=== PATIENT | female | born 1955 | race Caucasian/White ===

== ENCOUNTER 2023-09-08 11:37 | Emergency (ER) | payer OTHER ==
--- OUTSIDE RECORDS SUMMARY | 2023-09-08 11:41 | XMS REPORT | Continuity of Care Document ---
:1955 Author Organization [facility] t Address [address] [place] [address] [place] [id number] Care Team Providers Name Role Phone MIKA ARELLANO Primary Care Physician Unavailable SOFIA KHAN Attending Clinician Unavailable Lidya Hatfield Attending Clinician Unavailable Toyin Sellers Attending Clinician Sofia Khan MD Attending Clinician TOYIN JENKINS Attending Clinician Unavailable Doctor Unassigned, [place] Attending Clinician Unavailable SOFIA KHAN Admitting Clinician Unavailable ALMA ARELLANO Admitting Clinician Unavailable Payers Payer Name Policy Type Policy Number Effective Date Expiration Date S ource Problems Condition Condition Condition Status Onset Resolution Last Treating Co mments Source Name Details Category Date Date Treatment Clinician Date Primary Primary Disease Active Overview: Univ ers osteoarthr osteoarthr 3-10 Added it y of itis of itis of 00:00: automatic [place] left knee left knee 00 ally from [facility] Branch for surgery [id number] Primary Primary Diagnosis Active Commo n osteoarthr osteoarthr Sp mariangel itis of itis of - [facility] right knee right knee [facility] Pain, Pain, Diagnosis Active Common joint, joint, Spirit knee, knee, - [facility] right right [facility] Allergies, Adverse Reactions, Alerts Allergy Allergy Status Severity Reaction(s) Onset Inactive Treating Comm ents Source Name Type Date Date Clinician lidocain DA Active SV [facility] 01-29 Clear 00:00: [place] 00 [facility] lidocain DA Active [facility] 01-29 Clear 00:00: [place] 00 [facility] LIDOCAIN DRUG Active N/V 2017-11 Univers E INGREDI 2- ity of 00:00: [place] 00 [facility] Lidocain Propensi Active Nausea 2017-11 Univer s e ty to and/or 12-12 ity of adverse Vomiting 00:00: [place] reaction [facility] lidocain DA Active [facility] 11-21 [place] 00:00[facility] lid[facility] DA Active [facility] 11-21 [place] 00:00: [facility]ope 00 [facility] Lidocain Adverse Active Info Not Commo n e Reaction Available Spiri t - [facility] Social History Social Habit Start Date Stop Date Quantity Comments Source Sex Assigned At [facility] [place] [facility] Tobacco use and 2020-01-08 2020-01-08 Never used Universit y of exposure 00:00:00 00:00:00 [facility] [place] [facility] Alcohol intake 2020-01-08 2020-01-08 Current drinker Unive rsity of 00:00:00 00:00:00 of alcohol [facility] [place] Alcohol Comment 2019-03-31 2019-03-31 daily Universit y of 00:00:00 00:00:00 [facility] [place] [facility] Smoking Status Start Date Stop Date Source Unknown if ever smoked [facility] [place] [facility] [place] Never smoker [facility] Medications Ordered Filled Start Stop Current Ordering Indication Dosage Frequency Signature Comments Components Source Medication Medication Date Date Medication? Clinician (SIG) Name Name DICLOFENAC 2020-0 Yes [id number] TAKE 1 Univers 75 mg EC 9-03 9109 TABLET BY ity of tablet 00:00: MOUTH 00 TWICE Medical DAILY WITH Branch MEALS DICLOFENAC 2020-0 Yes [id number] TAKE 1 Univers 75 mg EC 7-28 9109 TABLET BY ity of tablet 00:00: MOUTH 00 TWICE Medical DAILY WITH Branch MEALS DICLOFENAC 2020-0 2020- No [id number] TAKE 1 Univers 75 mg EC 7-28 - 9109 TABLET BY ity o f tablet 00:00: 00:00 MOUTH [place] 00 :00 TWICE Medical DAILY WITH Branch MEALS DICLOFENAC 2020-0 Yes [id number] TAKE 1 Univers 75 mg EC 6-22 9109 TABLET BY ity of tablet 00:00: MOUTH [place] 00 TWICE Medical DAILY WITH Branch MEALS DICLOFENAC 2019-0 2020- No [id number] TAKE 1 Univers 75 mg EC 6-22 - 9109 TABLET BY ity o f tablet 00:00: 00:00 MOUTH [place] 00 :00 TWICE Medical DAILY WITH Branch MEALS diclofenac 2020-0 Yes 75mg Take 1 Unive rs 75 mg EC 3-25 tablet by ity of tablet 00:00: mouth 2 [place] 00 (two) Medical times Branch daily with meals. diclofenac 2019-0 2020- No 75mg Take 1 Univ ers 75 mg EC 3-25 - tablet by ity o f tablet 00:00: 00:00 mouth 2 [place] 00 :00 (two) Medical times Branch daily with meals. celecoxib 2020- No 400mg Univer s (CELEBREX) 01-21 ity of capsule 400 05:00: 16:59 [place] mg 00 :00 Medical Branch oxyCODONE-a 2019- No 2{tbl} Uni vers cetaminophe 01-21 ity of n 05:00: 16:59 [place] (PERCOCET) 00 :00 Medical 5-325 mg Branch per tablet 2 tablet tranexamic 2019- No 1000mg Univ ers acid 01-21 ity of (CYKLOKAPRO 05:00: 16:59 [place] N) 1,000 mg 00 :00 Medical in NaCl Branch 0.9% (NS) 250 mL piggyback gabapentin 2019-2019- No 300mg Unive rs (NEURONTIN) 01-21 ity of capsule 300 05:00: 16:59 [place] mg 00 :00 Medical Branch celecoxib 2019-0 2020- No 400mg Univer s (CELEBREX) 01-21 ity of capsule 400 05:00: 16:59 [place] mg 00 :00 Medical Branch oxyCODONE-a 2020- No 2{tbl} Uni vers cetaminophe 01-21 ity of n 05:00: 16:59 [place] (PERCOCET) 00 :00 Medical 5-325 mg Branch per tablet 2 tablet tranexamic 2019- No 1000mg Univ ers acid 01-21 ity of (CYKLOKAPRO 05:00: 16:59 [place] N) 1,000 mg 00 :00 Medical in NaCl Branch 0.9% (NS) 250 mL piggyback gabapentin 2019- No 300mg Unive rs (NEURONTIN) 01-21 ity of capsule 300 05:00: 16:59 [place] mg 00 :00 Medical Branch LISINOPRIL 0 2019- No 20mg Take 20 mg Univers ORAL 01-0709 by mouth. ity of 17:52: 00:00 [place] 48 :00 Medical Branch LISINOPRIL 2019-0 2019- No 20mg Take 20 mg Univers ORAL 01-0709 by mouth. ity of 17:52: 00:00 [place] 48 :00 Medical Branch lisinopril 2019-0 Yes TAKE 1 Unive rs 20 mg 3-02 TABLET BY ity of tablet 00:00: MOUTH [place] 00 TWICE Medical DAILY FOR Branch 90 DAYS atorvastati 2019-0 Yes TAKE 1 Univ ers n 20 mg 3-02 TABLET BY ity of tablet 00:00: MOUTH ONCE [place] 00 DAILY FOR Medical 90 DAYS Branch lisinopril 2019-0 Yes TAKE 1 Unive rs 20 mg 3-02 TABLET BY ity of tablet 00:00: MOUTH [place] 00 TWICE Medical DAILY FOR Branch 90 DAYS atorvastati 2019-0 Yes TAKE 1 Univ ers n 20 mg 3-02 TABLET BY ity of tablet 00:00: MOUTH ONCE [place] 00 DAILY FOR Medical 90 DAYS Branch lisinopril 2019-0 Yes TAKE 1 Unive rs 20 mg 3-02 TABLET BY ity of tablet 00:00: MOUTH [place] 00 TWICE Medical DAILY FOR Branch 90 DAYS atorvastati 2020-0 Yes TAKE 1 Univ ers n 20 mg 3-02 TABLET BY ity of tablet 00:00: MOUTH ONCE [place] 00 DAILY FOR Medical 90 DAYS Branch lisinopril 2020-0 Yes TAKE 1 Unive rs 20 mg 3-02 TABLET BY ity of tablet 00:00: MOUTH [place] 00 TWICE Medical DAILY FOR Branch 90 DAYS atorvastati 2019-0 Yes TAKE 1 Univ ers n 20 mg 3-02 TABLET BY ity of tablet 00:00: MOUTH ONCE [place] 00 DAILY FOR Medical 90 DAYS Branch lisinopril 2020-0 Yes TAKE 1 Unive rs 20 mg 3-02 TABLET BY ity of tablet 00:00: MOUTH [place] 00 TWICE Medical DAILY FOR Branch 90 DAYS atorvastati 2020-0 Yes TAKE 1 Univ ers n 20 mg 3-02 TABLET BY ity of tablet 00:00: MOUTH ONCE 00 DAILY FOR Medical 90 DAYS Branch lisinopril 2020-0 Yes TAKE 1 Unive rs 20 mg 3-02 TABLET BY ity of tablet 00:00: MOUTH [place] 00 TWICE Medical DAILY FOR Branch 90 DAYS atorvastati 2020-0 Yes TAKE 1 Univ ers n 20 mg 3-02 TABLET BY ity of tablet 00:00: MOUTH ONCE 00 DAILY FOR Medical 90 DAYS Branch lisinopril 2020-0 Yes TAKE 1 Unive rs 20 mg 3-02 TABLET BY ity of tablet 00:00: MOUTH 00 TWICE Medical DAILY FOR Branch 90 DAYS atorvastati 2020-0 Yes TAKE 1 Univ ers n 20 mg 3-02 TABLET BY ity of tablet 00:00: MOUTH ONCE 00 DAILY FOR Medical 90 DAYS Branch lisinopril 2020-0 Yes TAKE 1 Unive rs 20 mg 3-02 TABLET BY ity of tablet 00:00: MOUTH [place] 00 TWICE Medical DAILY FOR Branch 90 DAYS atorvastati 2020-0 Yes TAKE 1 Univ ers n 20 mg 3-02 TABLET BY ity of tablet 00:00: MOUTH ONCE 00 DAILY FOR Medical 90 DAYS Branch diclofenac 2019-0 Yes [id number] 75mg Take 1 U nivers 75 mg EC 8-08 tablet by ity of tablet 00:00: mouth (two) Medical times Branch daily with meals. diclofenac 2019-0 Yes [id number] 75mg Take 1 U nivers 75 mg EC 8-08 tablet by ity of tablet 00:00: mouth (two) Medical times Branch daily with meals. diclofenac 2019-0 Yes [id number] 75mg Take 1 U nivers 75 mg EC 8-08 tablet by ity of tablet 00:00: mouth 2 (two) Medical times Branch daily with meals. diclofenac 2019-0 Yes [id number] 75mg Take 1 U nivers 75 mg EC 8-08 tablet by ity of tablet 00:00: mouth 2 (two) Medical times Branch daily with meals. diclofenac 2019-0 Yes [id number] 75mg Take 1 U nivers 75 mg EC 8-08 tablet by ity of tablet 00:00: mouth 2 [place] (two) Medical times Branch daily with meals. diclofenac 2019-0 Yes [id number] 75mg Take 1 U nivers 75 mg EC 8-08 tablet by ity of tablet 00:00: mouth [place] (two) Medical times Branch daily with meals. diclofenac 2019-0 Yes [id number] 75mg Take 1 U nivers 75 mg EC 8-08 tablet by ity of tablet 00:00: mouth [place] (two) Medical times Branch daily with meals. diclofenac 2019-0 Yes [id number] 75mg Take 1 U nivers 75 mg EC 8-08 tablet by ity of tablet 00:00: mouth [place] (two) Medical times Branch daily with meals. diclofenac 2019-0 Yes [id number] 75mg Take 1 U nivers 75 mg EC 8-08 tablet by ity of tablet 00:00: mouth [place] (two) Medical times Branch daily with meals. diclofenac 2018-0 Yes [id number] 75mg Take 1 U nivers 75 mg EC 8-08 tablet by ity of tablet 00:00: mouth [place] (two) Medical times Branch daily with meals. diclofenac 2019-0 Yes [id number] 75mg Take 1 U nivers 75 mg EC 8-08 tablet by ity of tablet 00:00: mouth [place] (two) Medical times Branch daily with meals. diclofenac 2019-0 Yes [id number] 75mg Take 1 U nivers 75 mg EC 8-08 tablet by ity of tablet 00:00: mouth [place] (two) Medical times Branch daily with meals. diclofenac 2019- 2019- No [id number] 75mg Take 1 Univers 75 mg EC 5-31 08-08 tablet by ity o f tablet 00:00: 00:[address] [place] [address] 00 :00 (two) Medical times Branch daily with meals. Diclofenac 2019-0 Yes Univers Sodium 1 % 5-03 ity of gel 00:00: [place] 00 Medical Branch Diclofenac 2019-0 Yes Univers Sodium 1 % 5-03 ity of gel 00:00: [place] 00 Medical Branch Diclofenac 2019-0 Yes Univers Sodium 1 % 5-03 ity of gel 00:00: [place] 00 Medical Branch Diclofenac 2019-0 Yes Univers Sodium 1 % 5-03 ity of gel 00:00: [place] Medical [facility] Diclofenac 2019-0 Yes Univers Sodium 1 % 5-03 ity of gel 00:00: [place] [facility] Diclofenac 2019-0 Yes Univers Sodium 1 % 5-03 ity of gel 00:00: [place] [address] Medical Branch Diclofenac 2019-0 Yes Univers Sodium 1 % 5-03 ity of gel 00:00: [place] [address] Medical Branch Diclofenac 2019-0 Yes Univers Sodium 1 % 5-03 ity of gel 00:00: [place] [address] Medical Branch Diclofenac 2019-0 Yes Univers Sodium 1 % 5-03 ity of gel 00:00: [place] [address] Medical Branch Diclofenac 2019-0 Yes Univers Sodium 1 % 5-03 ity of gel 00:00: [place] [address] Medical Branch Diclofenac 2019-0 Yes Univers Sodium 1 % 5-03 ity of gel 00:00: [place] [address] Medical Branch Diclofenac 2018-0 Yes Univers Sodium 1 % 5-03 ity of gel 00:00: [address] Tramadol Tramadol 0 Yes Onesimo Anderson mon HCl HCl 4- Lara directed Spirit 00:00: - [facility] 00 [facility] estradiol 2 2017-11 Yes 2mg Take 2 mg U nivers mg tablet 2-11 by mouth ity of 19:56: daily. [address] estradiol 2 2017-11 Yes 2mg Take 2 mg U nivers mg tablet 2-11 by mouth ity of 19:56: daily. [address] estradiol 2 2017-11 Yes 2mg Take 2 mg U nivers mg tablet 2-11 by mouth ity of 19:56: daily. [address] estradiol 2 2017-11 Yes 2mg Take 2 mg U nivers mg tablet 2-11 by mouth ity of 19:56: daily. [address] estradiol 2 2017-11 Yes 2mg Take 2 mg U nivers mg tablet 2-11 by mouth ity of 19:56: daily. [address] estradiol 2 2017-11 Yes 2mg Take 2 mg U nivers mg tablet 2-11 by mouth ity of 19:56: daily. [address] estradiol 2 2017-11 Yes 2mg Take 2 mg U nivers mg tablet 2-11 by mouth ity of 19:56: daily. [address] estradiol 2 2017-11 Yes 2mg Take 2 mg U nivers mg tablet 2-11 by mouth ity of 19:56: daily. [address] estradiol 2 2017-11 Yes 2mg Take 2 mg U nivers mg tablet 2-11 by mouth ity of 19:56: daily. [address] estradiol 2 2017-11 Yes 2mg Take 2 mg U nivers mg tablet 2-11 by mouth ity of 19:56: daily. [address] estradiol 2 2017-11 Yes 2mg Take 2 mg U nivers mg tablet 2-11 by mouth ity of 19:56: daily. [address] estradiol 2 2017-11 Yes 2mg Take 2 mg U nivers mg tablet 2-11 by mouth ity of 19:56: daily. [address] estradiol 2 2017-11 Yes 2mg Take 2 mg U nivers mg tablet 2-11 by mouth ity of 19:56: daily. [address] metoprolol 2017-11 Yes 25mg Take 25 mg U nivers succinate 2-11 by mouth ity of XL 25 mg 24 19:56: [place]. [place] tablet [address] [place] [address] metoprolol 2017-11 Yes 25mg Take 25 mg U nivers succinate 2-11 by mouth ity of XL 25 mg 24 19:56: [place]. [place] tablet 20 [facility] metoprolol 2017-11 Yes 25mg Take 25 mg U nivers succinate 2-11 by mouth ity of XL 25 mg 24 19:56: [place]. [place] tablet [address] [place] [address] metoprolol 2017-11 Yes 25mg Take 25 mg U nivers succinate 2-11 by mouth ity of XL 25 mg 24 19:56: [place]. [place] tablet [address] [place] [address] LISINOPRIL 2017-11 Yes 20mg Take 20 mg U nivers ORAL 2-11 by mouth. ity of 19:56: [address] metoprolol 2017-11 Yes 25mg Take 25 mg U nivers succinate 2-11 by mouth ity of XL 25 mg 24 19:56: [place]. [place] tablet [address] [place] [address] LISINOPRIL 2017-11 Yes 20mg Take 20 mg U nivers ORAL 2-11 by mouth. ity of 19:56: [address] metoprolol 2017-11 Yes 25mg Take 25 mg U nivers succinate 2-11 by mouth ity of XL 25 mg 24 19:56: [place]. [place] tablet 20 [facility] LISINOPRIL 2017-11 Yes 20mg Take 20 mg U nivers ORAL 2-11 by mouth. ity of 19:56: [address] metoprolol 2017-11 Yes 25mg Take 25 mg U nivers succinate 2-11 by mouth ity of XL 25 mg 24 19:56: [place]. [place] tablet 20 [facility] LISINOPRIL 2017-11 Yes 20mg Take 20 mg U nivers ORAL 2-11 by mouth. ity of 19:56: [address] metoprolol 2017-11 Yes 25mg Take 25 mg U nivers succinate 2-11 by mouth ity of XL 25 mg 24 19:56: [place]. [place] tablet 20 [facility] metoprolol 2017-11 Yes 25mg Take 25 mg U nivers succinate 2-11 by mouth ity of XL 25 mg 24 19:56: [place]. [place] tablet 20 [facility] metoprolol 2017-11 Yes 25mg Take 25 mg U nivers succinate 2-11 by mouth ity of XL 25 mg 24 19:56: daily. [place] tablet 20 [facility] metoprolol 2017-11 Yes 25mg Take 25 mg U nivers succinate 2-11 by mouth ity of XL 25 mg 24 19:56: daily. [place] tablet 20 [facility] LISINOPRIL 2017-11 Yes 20mg Take 20 mg U nivers ORAL 2-11 by mouth. ity of 19:56: [address] metoprolol 2017-11 Yes 25mg Take 25 mg U nivers succinate 2-11 by mouth ity of XL 25 mg 24 19:56: daily. [place] tablet 20 [facility] metoprolol 2017-11 Yes 25mg Take 25 mg U nivers succinate 2-11 by mouth ity of XL 25 mg 24 19:56: [place]. [place] tablet 20 [facility] Lisinopril Lisinopril Yes Onesimo 1 tablet Common 07-08 [facility] 00:00: - [facility] 00 [facility] Estradiol Estradiol Yes Onesimo 1 tablet Common Lara [facility] - [facility] Metoprolol Metoprolol Yes Onesimo 1 tablet Common Tartrate Tartrate Lara with food Spirit [facility] Vital Signs Vital Name Observation Time Observation Value Comments Source Systolic blood 2020-01-08 18:00:00 134 mm[Hg] [facility] of [place] pressure Medical Branch Diastolic blood 2020-01-08 18:00:00 85 mm[Hg] Unive rsity of [facility] Heart rate 2020-01-08 18:00:00 59 /min [facility] [place] [facility] Body height 2020-01-08 17:51:00 158.8 cm [facility] [place] [facility] Body weight 2020-01-08 17:51:00 80.74 kg [facility] [place] [facility] BMI 2020-01-08 17:51:00 32.04 kg/m2 Universi ty [facility] Systolic blood 2020-01-08 18:00:00 134 mm[facility]Hg[facility] 2020-01-08 18:00:00 85 [facility]Hg[facility] 2020-01-08 18:00:00 59 /min [facility] [place] [facility] Body height 2020-01-08 17:51:00 158.8 cm Universi ty [facility] Body weight 2020-01-08 17:51:00 80.74 kg [facility] [place] [facility] BMI 2020-01-08 17:51:00 32.04 kg/m2 Universi ty [facility] Procedures Procedure Date / Time Performed Performing Clinician Sourc e XR KNEE <3 VW RIGHT 2020-01-08 17:51:10 [facility] ASSIGNMENT OF BENEFITS 2020-01-08 17:37:59 Doctor Unassigned, No [facility] SCANNED LAB RESULTS 2019-11-23 06:01:00 [facility] 2019-03-29 05:01:00 Doctor Unassigned, No [facility] RELEASE/CLEARANCE [facility] FORMS Encounters Start End Encounter Admission Attending Care Care Encounter Source Date/Time Date/Time Type Type Clinicians Facility Department ID 2021-08-28 Inpatient Melissa KHAN NCFERMIN JUAREZ [id number] Univers 13:38:16 SOFIA muro [facility] 2021-01-28 Inpatient Lidya Dumont HCATO HCATO [id number] [facility] 12:13:30 [facility] [place] [facility] 2021-01-29 2021-01-29 Outpatient Lidya Hatfield HCACL LABO [id number] [facility] 18:19:00 18:19:00 00 [facility] 2020-07-03 2020-07-03 [facility] 1.2.840.114 [id number] Univers 00:00:00 00:00:00 [facility]in S [facility] 350.1.13.10 it y of Surgical 4.2.7.2.686 Yash as Specialti [id number] Pa dical es 198 [facility] 2020-07-03 2020-07-03 [facility] 1.2.840.114 [id number] 00:00:00 00:00:00 [facility]in S [facility] 350.1.13.10 Surgical 4.2.7.2.686 Specialti [id number] es 198 [facility] 2020-05-27 2020-05-27 [facility] 1.2.840.114 [id number] Univers 00:00:00 00:00:00 [facility]in S [facility] 350.1.13.10 it y of Surgical 4.2.7.2.686 Yash as Specialti [id number] Pa dical es 198 [facility] 2020-05-27 2020-05-27 [facility] 1.2.840.114 [id number] 00:00:00 00:00:00 Toyin S [facility] 350.1.13.10 Surgical 4.2.7.2.686 Specialti [id number] es 198 [facility] 2020-04-19 2020-04-19 [facility] [id number] Univers 00:00:00 00:00:00 [facility] Health 350.1.13.10 it y of Surgical 4.2.7.2.686 Yash as Specialti [id number] Pa dical es 198 [facility] 2020-04-19 2020-04-19 [facility] [id number] 00:00:00 00:00:00 Sofia L Health 350.1.13.10 Surgical 4.2.7.2.686 Specialti [phone] es 198 [facility] 2020-01-23 2020-01-23 Telephone [facility] 1.2.840.114 [id number] Univers 00:00:00 00:00:00 oSfia Chen Health 350.1.13.10 it y of Surgical 4.2.7.2.686 Yash as Specialti [id number] Me dical es 198 [facility] 2020-01-23 2020-01-23 Telephone [facility] 1.2.840.114 [id number] 00:00:00 00:00:00 Sofia Chen [facility] 350.1.13.10 Surgical 4.2.7.2.686 Specialti [phone] es 198 [facility] 2020-01-12 2020-01-12 [facility] [id number] Univers 11:00:00 11:00:00 [facility] 2020-01-08 2020-01-08 [facility] [id number] Univers 12:51:09 23:59:00 TOYIN [facility] 2020-01-08 2020-01-08 [facility] 1.2.840.114 [id number] Univers 12:51:00 23:59:00 Encounter Toyin S Health 350.1.13.10 ity of Surgical 4.2.7.2.686 Yash as Specialti [id number] Me dical es 809 [facility] 2020-01-08 2020-01-08 [facility] 1.2.840.114 [id number] 12:51:00 23:59:00 Encounter Toyin S Health 350.1.13.10 Surgical 4.2.7.2.686 Specialti [id number] es 809 [place] 2020-01-08 2020-01-08 [facility] 1.2.840.114 [id number] Univers 12:40:40 12:55:40 Visit Toyin S Health 350.1.13.10 it y of Surgical 4.2.7.2.686 Yash as Specialti [id number] Me dical es 198 [facility] 2020-01-08 2020-01-08 [facility] 1.2.840.114 [id number] 12:40:40 12:55:40 Visit Toyin Cahn Health 350.1.13.10 Surgical 4.2.7.2.686 Specialti [id number] es 198 [place] 2020-01-08 2020-01-08 Orders Doctor STEPHEN 1.2.840.114 [id number] Univers 00:00:00 00:00:00 Only Unassigned, SCOTTIE 350.1.13.10 ity of [place] [facility] 4.2.7.2.686 Yash as [id number] [address] 2020-01-08 2020-01-08 Prep For KEN Khan 1.2.840.114 [id number] Univers 00:00:00 00:00:00 Surgery Sofia Chen [facility] 350.1.13.10 it y of Surgical 4.2.7.2.686 Yash as Specialti [id number] Pa dical es 198 [facility] 2020-01-08 2020-01-08 Prep For KEN Khan 1.2.840.114 [id number] 00:00:00 00:00:00 Surgery Sofia Chen [facility] 350.1.13.10 Surgical 4.2.7.2.686 Specialti [id number] es [address] [place] [address] 2019-11-27 2019-11-27 Telephone KEN Khan 1.2.840.114 [id number] Univers 00:00:00 00:00:00 Sofia Chen [facility] 350.1.13.10 it y of Surgical 4.2.7.2.686 Yash as Specialti [id number] Pa dical es 198 [facility] 2019-11-23 2019-11-23 Orders Doctor STEPHEN 1.2.840.114 [id number] Univers 00:00:00 00:00:00 Only Unassigned, SCOTTIE 350.1.13.10 ity of [place] [facility] 4.2.7.2.686 Yash as [id number] [address] 2019-06-08 2019-06-08 Telephone KEN Khan 1.2.840.114 [id number] Univers 00:00:00 00:00:00 Sofia Chen [facility] 350.1.13.10 it y of Surgical 4.2.7.2.686 Yash as Specialti [id number] Pa dical es 198 [facility] 2019-03-29 2019-03-29 Orders Doctor STEPHEN 1.2.840.114 [id number] [facility] 00:00:00 00:00:00 Only Unassigned, SCOTTIE 350.1.13.10 ity of [place] [facility] 4.2.7.2.686 Yash as [id number] [address] 2019-01-30 2019-01-30 Out[facility] [id number] Common 09:30:00 09:30:00 [facility] 2018-07-08 2018-07-08 Out[facility] [id number] Common 09:00:00 09:00:00 t Bone Bone [facility] Spiri t and Joint [facility] Results Test Description Test Time Test Comments Results Result [facility] e Comments - XR KNEE 1 OR 2 V 2021-02-14 LT 12:38:00 [facility] : 1955 Sex: F Patient Name: DAVID CLARK Unit No: [id number] EXAMS: CPT CODE: [id number] XR KNEE 1 [place] 2 [place] [address] AP AND LATERAL VIEW OF THE LEFT KNEE COMMENT: Patient is status post total left knee arthroplasty. The prosthesis appears to be in good position. at 1238 Reported and signed by: Neel Griffin MD CC: Lidya Hatfield MD Technologist: LUZ ELENA ROSARIO RT(R) Transcribed D/ (1238) Xu.GVG [facility] NAME: CLARKQUITNON DE LA FUENTEDAVID [address] PHYS: Lidya Llanes : 1955 AGE: 65 SEX: F [place] [address] LOC: Y.O20 A PHONE #: [phone] EXAM DATE: 02/14/2021 STATUS: ADM IN FAX #: [phone] RAD #: D/C DT PAGE 1 Signed Report Patient Name: CLARKDAVID DE LA FUENTE ERROL Unit No: [id number] EXAMS: CPT CODE: [id number] XR KNEE 1 OR 2 [place] [address] (Continued) Orig Print D/T: S: 02/14/2021 (1241) [facility] NAME: [address] PHYS: JEAN.Lidya Dillard : 1955 AGE: 65 SEX: F [place] [address] LOC: Y.O20 A PHONE #: [phone] EXAM DATE: 02/14/2021 STATUS: ADM IN FAX #: [phone] RAD #: D/C DT PAGE 2 Signed Report Novel Coronavirus 2019 Inhouse 2021-02-08 06:10:00 Test Item Value Reference Range Interpretation Comme nts Novel Coronavirus 2018 Negative Negative Posit manuel results are indicative of the Inhouse (test code = presenc e [id number]-3 RNA, clinical COVNONPUI) correlation wit h patient historyand other diagnosti c information is necessary to de terminepatient infection status. Positiv e results do not rule outbacterial in fection or co-infection with other viru ses. Negative results do not preclude SA RS-CoV-2 infection andshould not b e used as the sole basis for patient man agementdecisions. Negative result s must be combined with otherclinical o bservations, patient history, and ep idemiologicalinformation. Detection of SA RS-CoV-2 RNA may be affected bysamp le collection methods, storage conditi ons, and/or stageof infection. Em l RNA mutations, vaccinations, a ntiviraltherapeutics, antibiotics, ch emotherapeutic orimmunosuppres tori drugs have not been evaluated for e ffectson detection. Results are for the identification of SARS-CoV-2 RNA usingthe [employer] M2000 System under th e FDA Emergency UseAuthorizatio n. The testing is performed by fahad herr in the procedures for the [employer] M2000 moleculardiagno stic SARS-CoV-2 assay in vitro. Novel Coronavirus 2018 [id number] 06:09:00 Test Item Value Reference Range Interpretation Comments Novel Coronavirus Negative Negative Positive r esults are 2019 Inhouse (test indicativ e of the presence code = COVNONPUI) ofSARS-CoV -2 RNA, clinical correlation wit h patient historyand othe r diagnostic info rmation is necessary to determinepatien t infection status. Positiv e results do not rule out bacterial infection or co -infection with other viru ses. Negative result s do not preclude SARS-C oV-2 infection andsh ould not be used as the phan e basis for patient managementdecis ions. Negative result s must be combined with otherclinical observations, p atient history, and epidemiological information . Detection of SARS-CoV-2 RNA may be affe cted bysample collec tion methods, storag e conditions, and /or stageof infection. Em l RNA mutations, vacc inations, antiviraltherap eutics, antibiotics, chemotherapeuti c orimmunosuppres tori drugs have not been e valuated for effectson d etection. Results are for the identification of SARS-CoV-2 RNA usingthe [employer] M2000 Sy stem under the FDA Emergen cy UseAuthorizatio n. The testing is perf ormed by alissa braswell in the procedures for the [email or web address] molecular diagnostic SARS-CoV-2 assa y in vitro. COMPREHENSIVE METABOLIC [id number] 19:08:00 Test Item Value Reference Range Interpretation Comments SODIUM (test code = 139 mmol/L 136-145 N NA) POTASSIUM (test code = 4.0 mmol/L 3.5-5.1 N K) CHLORIDE (test code = 100.0 mmol/L 98-107 N CL) CARBON DIOXIDE (test 28.1 mmol/L 21-32 N code = CO2) GLUCOSE (test code = 84 mg/dL 70-110 N GLU) BLOOD UREA NITROGEN 14 mg/dL 7-18 N (test code = BUN) GLOMERULAR FILTRATION 64.1 >60 Unit o f measure: RATE (test code = GFR) mL/mi n/1.73 [id number] Range:Healthy Adults >90 mL/min/1.73 m2 For Chronic Kidney Disease: Stage II Mild Decrease i n GFR 60-90 Stage III Moderate Decrea se in GFR 30-59 St age IV Severe Decre ase in GFR 15-29 St age V Kidney Failur e <15 CREATININE (test code 0.89 mg/dL 0.55-1.30 N = CREAT) TOTAL PROTEIN (test 8.0 g/dL 6.4-8.2 N code = PROT) ALBUMIN (test code = 4.2 g/dL 3.4-5.0 N ALB) GLOBULIN (test code = 3.8 g/dL 2.2-4.2 N GLOB) ALBUMIN/GLOBULIN RATIO 1.1 0.7-2.0 N (test code = A/G) CALCIUM (test code = 9.5 mg/dL 8.2-10.1 N CA) BILIRUBIN TOTAL (test 0.30 mg/dL 0.2-1.00 N code = BILT) SGOT/AST (test code = 21.0 U/L 15-37 N AST) SGPT/ALT (test code = 31.0 U/L 12-78 N Please note new ALT) normal range. ALKALINE PHOSPHATASE 91 U/L 46-116 N TOTAL (test code = ALKP) PROTHROMBIN [id number] 19:04:00 Test Item Value Reference Range Interpretation Comments PROTHROMBIN TIME 11.5 secs 10.1-12.5 N PATIENT (test code = PTP) INTERNATIONAL NORMAL 1.01 <2.0 RECOMME NDED THERAPEUTIC RATIO (test code = RANGE FOR ORAL INR) ANTICOAGULANTTR EATMENT: CONDITION INRPr ophylaxis of venous throm bosis in 2.0 - 3.0 high- risk medical or surg ical patientsTreatme nt of venous thrombos is 2.0 - 3.0Prevention o f embolism 2.0 - 3.0Prevention o f recurrent embol ism, or 3.0 - 4.5 patie nts with mechanical pros thetic intravascular v fuller IS PATIENT ON ANTICOAGULANTS ? [facility] been notified if Patient is on Heparin Drip? NOTHROMBOPLASTIN TIME [id number] 19:04:00 Test Item Value Reference Range Interpretation Comments PTT ACTIVATED (test code = APTT) 34.6 secs 24.9-37.0 N IS PATIENT ON ANTICOAGULANTS ? [facility] been notified if Patient is on Heparin Drip? NOCBC W/AUTO [id number] 18:40:00 Test Item Value Reference Range Interpretation Comments WHITE BLOOD CELL (test code = WBC) 8.7 K/mm3 5.8-11.0 N RED BLOOD CELL (test code = RBC) 4.18 M/mm3 4.2-5.4 L HEMOGLOBIN (test code = HGB) 12.7 g/dL 12-16 N HEMATOCRIT (test code = HCT) 38.2 % 37-47 N MEAN CELL VOLUME (test code = MCV) 91 fL 80-98 N MEAN CELL HGB (test code = MCH) 30.4 pg 27-34 N MEAN CELL HGB CONCENTRATION (test 33.2 g/dL 30.8-34.1 N code = MCHC) RED CELL DISTRIBUTION WIDTH (test 12.4 % 11-16 N code = RDW) PLT (test code = PLT) 291 K/mm3 130-400 N MEAN PLATELET VOLUME (test code = 9.3 fL 8.9-12.1 N MPV) NEUTROPHIL % (test code = NT%) 59.7 % 45-70 N LYMPHOCYTE % (test code = LY%) 29.5 % 20-40 N MONOCYTE % (test code = MO%) 8.4 % 3-10 N EOSINOPHIL % (test code = EO%) 1.5 % 1-5 N BASOPHIL % (test code = BA%) 0.6 % 0.0-1.1 N NEUTROPHIL # (test code = NT#) 5.18 K/mm3 2.00-7.50 N LYMPHOCYTE # (test code = LY#) 2.56 K/mm3 1.50-4.00 N MONOCYTE # (test code = MO#) 0.73 K/mm3 0.2-0.8 N EOSINOPHIL # (test code = EO#) 0.13 K/mm3 0.04-0.4 N BASOPHIL # (test code = BA#) 0.05 K/mm3 0.02-0.10 N MANUAL DIFF REQUIRED (test code = NO MANUAL DIFF MDIFF) NUCLEATED RED BLOOD CELL (test 0 % 0-0 N code = NRBC) XR KNEE <3 VW [id number] 18:27:[id number] osteoarthritis in the left knee on the lateral view in flexion and the patellar femoralgroove and the medial compartment and the lateral compartment this is tricompartmental [facility]
[2023-09-08 12:36] LABS: Absolute Lymphocytes (CBC) 1.5 K/uL (0.7-4.9); Hematocrit 39.8 % (36.0-45.0); Lymphocytes % 15.8 % (15.3-44.8); MCV 89.6 fL (80-100); MPV 6.9 fL (7.6-11.3); Platelets 320 thou/uL (152-406); RBC Red Blood Cell Count 4.45 M/uL (3.86-4.86)
[2023-09-08 12:50] LABS: SARS-CoV-2 Antigen Rapid Res Positive (Negative)
[2023-09-08] MEDS ORDERED: NA CHLORIDE 0.9% 1,000 ML ONE (12:54)
[2023-09-08] MEDS ORDERED: PROMETHAZINE INJ 25 MG/ML AMP ONE (12:54)
[2023-09-08 13:01] LABS: Bilirubin Total 0.6 mg/dL (0.2-1.0); Potassium 3.5 mEq/L (3.5-5.1); Protein, Total 8.6 g/dL (6.4-8.2)
--- NOTE | 2023-09-08 13:03 | EDPHYS ---
Physician Documentation [facility] Name: Autumn Kirkpatrick Age: 68 yrs Sex: Female : 1955 Arrival Date: 09/08/2023 Time: 11:37 Bed 10 Private MD: ED Physician Tk Rosas HPI: 09/08 13:04 This 68 yrs old Female presents to ER via EMS with complaints of snw Nausea/Vomiting/Diarrhea. 13:04 The patient presents to the emergency department with nausea, vomiting, diarrhea. snw Onset: The symptoms/episode began/occurred suddenly. Possible causes: unknown. Associated signs and symptoms: Pertinent positives: diarrhea, nausea, vomiting, malaise, fatigue. Severity of symptoms: At their worst the symptoms were moderate. The patient has not experienced similar symptoms in the past. It is unknown whether or not the patient has recently seen a physician. Historical: - Allergies: 12:00 Lidocaine; iw - Home Meds: 12:01 atorvastatin 20 mg oral tablet daily [Active]; lisinopril 20 mg Oral tablet 2 times per iw day [Active]; metoprolol tartrate 25 mg Oral tablet daily [Active]; doxepin 10 mg Oral capsule daily [Active]; - PMHx: 12:00 Hypertensive disorder; Hypercholesterolemia; iw 12:02 Myocardial infarction; iw - PSHx: 12:01 knee; iw 12:02 Appendectomy; hysterectomy; iw - Immunization history:: Adult Immunizations up to date. - Social history:: Smoking status: unknown. ROS: 13:03 Eyes: Negative for injury, pain, redness, and discharge, ENT: Negative for injury, snw pain, and discharge, Neck: Negative for injury, pain, and swelling, Cardiovascular: Negative for chest pain, palpitations, and edema, Respiratory: Negative for shortness of breath, cough, wheezing, and pleuritic chest pain, Back: Negative for injury and pain, : Negative for injury, bleeding, discharge, and swelling, MS/Extremity: Negative for injury and deformity, Skin: Negative for injury, rash, and discoloration, Neuro: Negative for headache, weakness, numbness, tingling, and seizure, 13:03 Constitutional: Positive for body aches, malaise, poor PO intake, 13:03 Abdomen/GI: Positive for nausea, vomiting, and diarrhea, Exam: 12:44 Constitutional: This is a well developed, well nourished patient who is awake, alert, snw and in no acute distress. 12:44 Head/Face: Normocephalic, atraumatic. Eyes: Pupils equal round and reactive to light, extra-ocular motions intact. Lids and lashes normal. Conjunctiva and sclera are non-icteric and not injected. Cornea within normal limits. Periorbital areas with no swelling, redness, or edema. 12:44 Neck: Trachea midline, no thyromegaly or masses palpated, and no cervical lymphadenopathy. Supple, full range of motion without nuchal rigidity, or vertebral point tenderness. No Meningismus. Chest/axilla: Normal chest wall appearance and motion. Nontender with no deformity. No lesions are appreciated. Cardiovascular: Regular rate and rhythm with a normal S1 and S2. No gallops, murmurs, or rubs. Normal PMI, no JVD. No pulse deficits. Respiratory: Lungs have equal breath sounds bilaterally, clear to auscultation and percussion. No rales, rhonchi or wheezes noted. No increased work of breathing, no retractions or nasal flaring. Back: No spinal tenderness. No costovertebral tenderness. Full range of motion. MS/ Extremity: Pulses equal, no cyanosis. Neurovascular intact. Full, normal range of motion. Neuro: Awake and alert, GCS 15, oriented to person, place, time, and situation. Cranial nerves II-XII grossly intact. Motor strength 5/5 in all extremities. Sensory grossly intact. Cerebellar exam normal. Normal gait. Psych: Awake, alert, with orientation to person, place and time. Behavior, mood, and affect are within normal limits. 12:44 ENT: Mouth: Oral mucosa: dry, 12:44 Abdomen/GI: Inspection: abdomen appears normal, Palpation: moderate abdominal tenderness, in all quadrants, 12:44 Skin: Appearance: Color: normal in color, Temperature: normal temperature, Moisture: dry, Vital Signs: 11:58 BP 162 / 94; Pulse 83; Resp 16; Temp 97.5(O); Pulse Ox 98% on R/A; Weight 80.29 kg; iw Height 5 ft. 3 in. ; Pain 7/10; 11:58 Body Mass Index 31.35 (80.29 kg, 160.02 cm) iw 11:58 Pain Scale: Adult iw MDM: 12:06 Patient medically screened. snw 13:05 Differential diagnosis: Nonspecific abd pain, gastritis, viral gastroenteritis, snw gastroenteritis, covid, flu. Data reviewed: vital signs, nurses notes, lab test result(s), electrolytes, within normal, Covid +. I considered the following discharge prescriptions or medication management in the emergency department Medications were administered in the Emergency Department. See MAR. Counseling: I had a detailed discussion with the patient and/or guardian regarding the historical points, exam findings, and any diagnostic results supporting the discharge/admit diagnosis, lab results, radiology results, the need for outpatient follow up, for definitive care, to return to the emergency department if symptoms worsen or persist or if there are any questions or concerns that arise at home. Response to treatment: the patient's symptoms have mildly improved after treatment. 09/08 12:01 Order name: Flu; Complete Time: 12:55 snw 09/08 12:01 Order name: SARS RAPID; Complete Time: 12:55 snw 09/08 12:01 Order name: CBC with Diff; Complete Time: 12:55 snw 09/08 12:01 Order name: CMP; Complete Time: 13:01 snw 09/08 12:01 Order name: Lipase; Complete Time: 13:01 snw 09/08 12:01 Order name: IV Saline Lock; Complete Time: 12:21 snw 09/08 12:01 Order name: Labs collected and sent; Complete Time: 12:21 snw Administered Medications: 12:46 Drug: NS 0.9% IV 1000 ml IV at 1 bolus Per protocol; 1000 mL bolus Route: IV; Rate: 1 iw bolus; Site: left hand; 14:00 Follow up: IV Status: Completed infusion iw 12:46 Drug: Promethazine IVP 12.5 mg IVP once Route: IVP; Site: left hand; iw 13:30 Follow up: Response: No adverse reaction iw 13:55 Drug: HYDROcodone-acetaminophen PO 5 mg-325 mg 1 tabs PO once Route: PO; iw 14:35 Follow up: Response: No adverse reaction; Pain is decreased iw Disposition: 16:36 I was immediately available on-site in the Emergency Department for consultation in the dc3 care of the patient. Disposition Summary: 09/08/23 13:02 Discharge Ordered Notes: Location: Home snw Condition: Stable snw Diagnosis - SARS-associated coronavirus as the cause of diseases classified elsewhere snw Followup: snw - With: Emergency Department - When: As needed - Reason: Worsening of condition Followup: snw - With: Private Physician - When: 2 - 3 days - Reason: Recheck today's complaints, Continuance of care, Re-evaluation by your physician Discharge Instructions: - Discharge Summary Sheet snw - Dehydration, Elderly snw - Aspirin and Your Heart snw - Rehydration, Elderly snw - COVID-19 snw - 10 Things You Can Do to Manage Your COVID-19 Symptoms at Home - [facility] (05/16/2021) snw - COVID-19: Quarantine and Isolation - [facility] (01/28/2022) snw Forms: - Work release form snw - Medication Reconciliation Form snw - Thank You Letter snw - Antibiotic Education snw - Prescription Opioid Use snw - Patient Portal Instructions snw - Leadership Thank You Letter snw Prescriptions: - Zyrtec 10 mg Oral Tablet - take 1 tablet ORAL route once daily As needed; 20 tablet; Refills: 0, Product snw Selection Permitted - Pepcid 20 mg Oral Tablet - take 1 tablet ORAL route once daily; 20 tablet; Refills: 0, Product Selection snw Permitted Signatures: Dispatcher [employer] EDWilma Pfeiffer, SPRAY DRIER OPERATOR HELPER-C SPRAY DRIER OPERATOR HELPER-Csnw Sigrid Troncoso, PETAR RN Tk Aldana DO DO ms3 Norma Trinidad RN RN tm6 Corrections: (The following items were deleted from the chart) 12:02 12:00 Home Meds: atorvastatin oral daily; tina
--- NOTE | 2023-09-08 13:03 | ER ---
Nurse's Notes [facility] Name: Autumn Kirkpatrick Age: 68 yrs Sex: Female : 1955 Arrival Date: 09/08/2023 Time: 11:37 Bed 10 Private MD: Diagnosis: SARS-associated coronavirus as the cause of diseases classified elsewhere Presentation: 09/08 11:58 Chief complaint: EMS states: n/v/d since Wednesday, was prescribed ondansetron and iw azithromycin by Dr. Jones, unable to hold anything down , denies abd pain. Coronavirus screen: Client presents with at least one sign or symptom that may indicate coronavirus-19. Ebola Screen: Patient negative for fever greater than or equal to 101.5 degrees Fahrenheit, and additional compatible Ebola Virus Disease symptoms Patient denies exposure to infectious person. Patient denies travel to an Ebola-affected area in the 21 days before illness onset. No symptoms or risks identified at this time. 11:58 Method Of Arrival: EMS: [facility] iw 11:58 Acuity: ANDRÉS 3 iw 15:11 Initial Sepsis Screen: Does the patient meet any 2 criteria? No. Patient's initial tm6 sepsis screen is negative. Does the patient have a suspected source of infection? No. Patient's initial sepsis screen is negative. Risk Assessment: Do you want to hurt yourself or someone else? Patient reports no desire to harm self or others. Onset of symptoms is unknown. Historical: - Allergies: 12:00 Lidocaine; iw - Home Meds: 12:01 atorvastatin 20 mg oral tablet daily [Active]; lisinopril 20 mg Oral tablet 2 times per iw day [Active]; metoprolol tartrate 25 mg Oral tablet daily [Active]; doxepin 10 mg Oral capsule daily [Active]; - PMHx: 12:00 Hypertensive disorder; Hypercholesterolemia; iw 12:02 Myocardial infarction; iw - PSHx: 12:01 knee; iw 12:02 Appendectomy; hysterectomy; iw - Immunization history:: Adult Immunizations up to date. - Social history:: Smoking status: unknown. Screenin:40 [facility] ED Fall Risk Assessment (Adult) Score/Fall Risk Level 0 - 2 = Low Risk. Abuse iw screen: Denies threats or abuse. Denies injuries from another. Nutritional screening: No deficits noted. Tuberculosis screening: No symptoms or risk factors identified. Assessment: 12:00 General: Appears uncomfortable, Behavior is calm, cooperative. General: Reports fever iw for feeling ill for fatigue for. Pain: Complains of pain in head and abdomen. Neuro: Level of Consciousness is awake, alert, obeys commands, Oriented to person, place, time, situation, Moves all extremities. Cardiovascular: Patient's skin is warm and dry. Respiratory: Respiratory effort is even, unlabored, Respiratory pattern is regular. GI: Abdomen is non-distended, Reports diarrhea, nausea. Derm: Skin is fragile, is thin. 15:11 Reassessment: Patient appears in no apparent distress at this time. tm6 Vital Signs: 11:58 BP 162 / 94; Pulse 83; Resp 16; Temp 97.5(O); Pulse Ox 98% on R/A; Weight 80.29 kg; iw Height 5 ft. 3 in. ; Pain 7/10; 11:58 Body Mass Index 31.35 (80.29 kg, 160.02 cm) iw 11:58 Pain Scale: Adult iw ED Course: 11:57 Patient arrived in ED. iw 12:00 Triage completed. iw 12:00 Wilma Valladares FNP-C [facility] snw 12:00 Tk Rosas DO is Attending Physician. snw 12:01 Arm band placed on. iw 12:21 SARS RAPID Sent. iw 12:21 Flu Sent. iw 12:21 CBC with Diff Sent. iw 12:21 CMP Sent. iw 12:21 Lipase Sent. iw 12:21 Maintain EMS IV. Dressing intact. Good blood return noted. Site clean \T\ dry. Gauge \T\ iw site: 22 left wrist . 13:24 Sigrid Troncoso, RN is Primary Nurse. iw 14:40 Patient has correct armband on for positive identification. iw 15:11 Provided Education on: medications. tm6 15:11 No provider procedures requiring assistance completed. IV discontinued, intact, tm6 bleeding controlled, No redness/swelling at site. Administered Medications: 12:46 Drug: NS 0.9% IV 1000 ml IV at 1 bolus Per protocol; 1000 mL bolus Route: IV; Rate: 1 iw bolus; Site: left hand; 14:00 Follow up: IV Status: Completed infusion iw 12:46 Drug: Promethazine IVP 12.5 mg IVP once Route: IVP; Site: left hand; iw 13:30 Follow up: Response: No adverse reaction iw 13:55 Drug: HYDROcodone-acetaminophen PO 5 mg-325 mg 1 tabs PO once Route: PO; iw 14:35 Follow up: Response: No adverse reaction; Pain is decreased iw Medication: 15:12 VIS not applicable for this client. tm6 Outcome: 13:02 Discharge ordered by MD. schmidt 15:11 Discharged to home ambulatory, with family, tm6 15:11 Condition: stable 15:11 Discharge instructions given to patient, family, Instructed on discharge instructions, follow up and referral plans. medication usage, Demonstrated understanding of instructions, follow-up care, medications, Prescriptions given X 2, 15:12 Patient left the ED. tm6 Signatures: Wilma Valladares, BRITANYC DIRECTOR FAMILY-Gloriaw Sigrid Troncoso, RN RN Norma Trinidad RN RN tm6 Corrections: (The following items were deleted from the chart) 12:02 12:00 Home Meds: atorvastatin oral daily; iw iw
[2023-09-08] MEDS ORDERED: HYDROCODONE/APAP 5/325 MG TAB ONE (14:04)
[2023-09-08 15:37] VITALS: BP 162/94; TEMP 97.5; O2SAT 98
== END 2023-09-08 15:12 | disposition home or self-care (01) ==
LOC: ER 11:37
DX: U07.1 COVID-19 (principal); I10 Essential (primary) hypertension; E78.00 Pure hypercholesterolemia, unspecified; Z88.4 Allergy status to anesthetic agent
CPT/HCPCS: 96361; 85025; 36415; 83690; 80053; 87804 ×2; 96374; 99284; 87811; J2550; J7030